=== PATIENT | male | born 1995 | race Two or more races ===

== ENCOUNTER 2020-09-02 13:40 | Emergency (ER) | payer OTHER ==
[~2020-09-02] VITALS: Ht 170.2 cm; Wt 75.3 kg
[2020-09-02 13:46] VITALS: BP 114/75
[2020-09-02] MEDS ORDERED: IBUPROFEN 800 MG TAB PO ONE (16:00)
[2020-09-02] MEDS ORDERED: METHOCARBAMOL 500 MG TAB PO ONE (16:00)
== END 2020-09-02 16:18 | disposition home or self-care (01) ==
LOC: ER 13:40
DX: R51.9 Headache, unspecified (principal); F17.210 Nicotine dependence, cigarettes, uncomplicated
CPT/HCPCS: 70450